=== PATIENT | male | born 1985 | race Hispanic/Latino ===

== ENCOUNTER 2017-10-19 08:17 | Emergency (ER) | payer OTHER ==
[2017-10-19 08:22] VITALS: BP 122/62; PULSE 109; O2SAT 99
[2017-10-19] MEDS ORDERED: Sodium Chloride 0.9% 1,000 ML IV STA (08:35)
[2017-10-19 09:00] LABS: BASO % 0.3 % (0.0-2.0); EOS % 0.2 % (0.0-4.0); HEMATOCRIT 51.2 % (35.0-51.0); LYMPH # 0.5 K/uL (1.0-4.3); MEAN CELL VOLUME 87.1 fl (80.0-94.0); MEAN CORPUSCULAR HGB CONC 34.4 g/dL (33.0-37.0); MEAN PLATELET VOLUME 7.3 fl (7.2-11.7); MONO # 0.6 K/uL (0.0-0.8); MONO % 5.1 % (0.0-10.0); NEUT # 10.7 K/uL (1.8-7.0); NEUT % 90.4 % (50.0-75.0); NRBC % 0.1 % (0.0-0.0); PLATELET COUNT 183 K/uL (130-400); RED CELL DISTRIBUTION WIDTH 12.7 % (11.5-14.5); WHITE BLOOD COUNT 11.8 K/uL (4.8-10.8)
[2017-10-19 09:20] LABS: ALKALINE PHOSPHATASE 84 U/L (38-126); ALT/SGPT 39 U/L (21-72); AST/SGOT 25 U/L (17-59); BILIRUBIN,TOTAL 1.1 mg/dl (0.2-1.3); BLOOD UREA NITROGEN 20 mg/dl (9-20); CALCIUM 9.5 mg/dL (8.4-10.2); CARBON DIOXIDE 23 mmol/L (22-30); CHLORIDE 105 mmol/L (98-107); GFR AFRICAN-AMERICAN > 60; GLUCOSE,RANDOM 137 mg/dL (75-110); LIPASE 135 U/L (23-300); POTASSIUM 4.3 MMOL/L (3.6-5.0); SODIUM 142 mmol/l (132-148); TOTAL PROTEIN 8.3 G/DL (6.3-8.2)
[2017-10-19 09:45] LABS: ALB/GLOB RATIO 1.4 (1.0-2.1)
[2017-10-19] MEDS: Lactated Ringer's 1,000 ML IV SCH ×3 (10:42→12:56)
[2017-10-19 10:54] LABS: NEUTROPHIL 91 % (42-75); REACTIVE LYMPHOCYTES 2 % (0-0); TOTAL CELLS COUNTED 100
[2017-10-19 12:24] LABS: RBC URINE 10 /hpf (0-3); URINE BACTERIA RARE (<OCC); URINE BILIRUBIN NEGATIVE (NEGATIVE); URINE BLOOD NEGATIVE (NEGATIVE); URINE COLOR YELLOW (YELLOW); URINE GLUCOSE (UA) NEG (Normal); URINE KETONE 20 mg/dL (NEGATIVE); URINE LEUKOCYTE ESTERASE NEG Leu/uL (Negative); URINE PROTEIN 30 mg/dL (NEGATIVE); URINE UROBILINOGEN 0.2-1.0 mg/dL (0.2-1.0); WBC URINE 1 /hpf (0-5)
[2017-10-19 13:01] VITALS: TEMP 99.5
--- NOTE | 2017-10-19 14:40 | ED PDOC ---
HPI:Nausea, Vomiting, Diarrhea Time Seen by Provider: 10/19/17 08:24 Chief Complaint (Nursing): Abdominal Pain Chief Complaint (Provider): Vomiting, Diarrhea, Mild Headache History Per: Patient History/Exam Limitations: no limitations Onset/Duration Of Symptoms: Days Current Symptoms Are (Timing): Still Present Have you had recent travel within the past 21 days to any of the following countries: [place], [place], [place] or [place]?: No Other Location:: [facility] ([facility]) Quality Of Discomfort: Burning Associated Symptoms: Vomiting, Diarrhea Exacerbating Factors: None Alleviating Factors: None Additional Complaint(s): Terry Barker, a 31 year old male, who recently returned from [facility] presents to the ED today to be evaluated. The patient reports that upon landing he developed cramping abdominal pain associated with non bloody vomiting and diarrhea as well as a mild headache. Denies rash, significant joint pain and bruising. The patient reports that he is currently taking antimalarial medication which he is finishing and he thinks that he received the typhoid vaccine prior to taking this medication. Denies sick contacts. Patient also denies eating uncooked food, exposure to unsanitary drinking water or river or streams. PMD: Non [facility] Provider, Past Medical History Reviewed: Historical Data, Nursing Documentation, Vital Signs Vital Signs: Last Vital Signs Temp 99.5 F 10/19/17 13:01 Pulse 109 H 10/19/17 08:21 Resp BP 122/62 10/19/17 08:21 Pulse Ox 99 10/19/17 08:21 - Medical History PMH: No Chronic Diseases - Surgical History Surgical History: No Surg Hx - Family History Family History: States: Unknown Family Hx - Social History Current smoker - smoking cessation education provided: No Ex-Smoker (has not smoked in the last 12 months): No Alcohol: None Drugs: Denies - Home Medications Home Medications: Ambulatory Orders Medication Instructions Recorded Ciprofloxacin [Cipro] 500 mg PO BID #10 tab 10/19/17 Dicyclomine [Dicyclomine HCl] 10 mg PO TID PRN #10 cap 10/19/17 Ibuprofen [Motrin Tab] 600 mg PO Q6 PRN #15 tab 10/19/17 Ondansetron [Zofran] 4 mg PO Q6H PRN #10 tab 10/19/17 metroNIDAZOLE [Flagyl] 500 mg PO TID #15 tab 10/19/17 - Allergies Allergies/Adverse Reactions: Allergies Allergy/AdvReac Type Severity Reaction Status Date / Time No Known Allergies Allergy Verified 10/19/17 08:29 Review of Systems ROS Statement: Except As Marked, All Systems Reviewed And Found Negative Gastrointestinal: Positive for: Vomiting, Abdominal Pain (cramping abdominal pain), Diarrhea Neurological: Positive for: Headache Physical Exam - Physical Exam Appears: Positive for: Non-toxic, No Acute Distress (mildly dehydrated) Head Exam: Positive for: ATRAUMATIC, NORMAL INSPECTION, NORMOCEPHALIC Skin: Positive for: Normal Color, Warm, Dry. Negative for: Rash Eye Exam: Positive for: Normal appearance, EOMI, PERRL. Negative for: Scleral icterus ENT: Positive for: Normal ENT Inspection Neck: Positive for: Normal (NO cervical adenopathy), Painless ROM, Supple Cardiovascular/Chest: Positive for: Regular Rate, Rhythm, Chest Non Tender. Negative for: Tachycardia Respiratory: Positive for: Normal Breath Sounds. Negative for: Wheezing, Respiratory Distress Gastrointestinal/Abdominal: Positive for: Normal Exam, Bowel Sounds, Soft. Negative for: Tenderness, Guarding, Rebound Back: Positive for: Normal Inspection. Negative for: L CVA Tenderness, R CVA Tenderness Extremity: Positive for: Normal ROM. Negative for: Tenderness, Deformity, Swelling Lymphatic: Positive for: Normal Exam. Negative for: Adenopathy Neurologic/Psych: Positive for: Alert, Oriented - Laboratory Results Result Diagrams: 10/19/17 08:56 10/19/17 08:56 - ECG O2 Sat by Pulse Oximetry: 99 (RA) Pulse Ox Interpretation: Normal Medical Decision Making Medical Decision Makin Initial Impression 31 y/o male presenting with abdominal cramping, vomiting, diarrhea and headache Workup for possible tropical gastrointestinal disease Initial Plan: * CMP * Lipase * CBC * Blood Culture * Ova and Parasitee * Stool Culture * Urinalysis * Toradol 30mg IV * Bentyl 10mg PO * Zofran inj 8mg IV * Lactated ringers 1000 ml IV 1000 mls/hr * Reevaluation Reevaluated frequently over course of ED stay with gradual improvement. He ambulates to and from the bathroom remains afebrile. Patient will be started on cipro and flagil and referred to infectious diseases to follow up with cultures. Scribe Attestation: Documented by Pastora Wood, acting as a scribe for Mejia De La Rosa DO. Provider Scribe Attestation: All medical record entries made by the Scribe were at my direction and personally dictated by me. I have reviewed the chart and agree that the record accurately reflects my personal performance of the history, physical exam, medical decision making, and the department course for this patient. I have also personally directed, reviewed, and agree with the discharge instructions and disposition. Disposition - Clinical Impression Clinical Impression: Travelers' diarrhea, Vomiting, Abdominal discomfort - Patient ED Disposition Is Patient to be Admitted: No - Disposition Referrals: Michelle Sams MD [Staff Provider] - Disposition Time: 14:51 Condition: STABLE Additional Instructions: See ID doctor in 2-3 days if symptoms persist. Return to ER for any rash, blood in stool, weakness, decreased urination, worse pain, fever >104 or any concern. Prescriptions: Ciprofloxacin [Cipro] 500 mg PO BID #10 tab Dicyclomine [Dicyclomine HCl] 10 mg PO TID PRN #10 cap PRN Reason: Gi Distress Ibuprofen [Motrin Tab] 600 mg PO Q6 PRN #15 tab PRN Reason: Pain, Moderate (4-7) metroNIDAZOLE [Flagyl] 500 mg PO TID #15 tab Ondansetron [Zofran] 4 mg PO Q6H PRN #10 tab PRN Reason: Nausea/Vomiting Instructions: Loperamide (By mouth), Traveler's Diarrhea (ED), Gastroenteritis (ED), Abdominal Pain (ED), Nutrition Tips for Relief of Diarrhea (ED) Forms: [facility] ([place]ian) - POA Present On Arrival: None
== END 2017-10-19 14:39 | disposition home or self-care (01) ==
LOC: H.ER 08:17
DX: K52.9 Noninfective gastroenteritis and colitis, unspecified (principal); R51 Headache
CPT/HCPCS: 80053; 81003; 83690; 85025; 87040; 87045; 87177; 87209; 96374; 96375; 99282; J1885; J2405; J7040; J7120